=== PATIENT | female | born 1995 | race Caucasian/White ===

== ENCOUNTER 2017-03-21 03:20 | Inpatient (IN) | payer OTHER ==
[~2017-03-21] VITALS: Ht 157.5 cm; Wt 76.2 kg
[2017-03-21] MEDS ORDERED: FAMOTIDINE 20 MG INJ IV STA (04:20)
[2017-03-21] MEDS ORDERED: morphine 4 MG/ML VIAL IV STA (04:20)
[2017-03-21] MEDS ORDERED: ONDANSETRON 4 MG INJ IV STA (04:20)
[2017-03-21] MEDS ORDERED: SOD CHLORIDE 0.9% 500 ML IV STA (04:20)
--- NOTE | 2017-03-21 04:28 | ERD ---
ER Documentation Chief Complaint Chief Complaint epigastric pain since 5 hours ago vomiting HPI Patient is a 21-year-old female who presents with sudden onset, constant, moderate to severe epigastric and right upper quadrant pain since 12 AM. She reports 3 episodes of vomiting. She denies fever or diarrhea. She denies back pain. She reports that she has had similar pain in the past associated with eating spicy food since the age of 18. She has never sought medical attention for this pain. She reports that she ate a large meal around 9 PM. ROS All systems reviewed and are negative except as per history of present illness. Medications Home Meds No Active Prescriptions or Reported Meds Allergies Allergies: Coded Allergies: No Known Drug Allergies (Verified Allergy, Unknown, 03/23/14) PMhx/Soc Past medical history: None Past surgical history: Strabismus surgery Last menstrual: 3 weeks ago Social history: Denies tobacco or alcohol Medical and Surgical Hx: pt denies Medical Hx Hx Alcohol Use: No Hx Substance Use: No Hx Tobacco Use: No Smoking Status: Never smoker FmHx Family History: diabetes, No coronary disease Physical Exam Vitals Vital Signs Date Time Temp Pulse Resp B/P Pulse Ox O2 Delivery O2 Flow Rate FiO2 03/21/17 05:49 64 20 137/88 100 Room Air 03/21/17 03:27 98.6 68 20 125/76 99 Physical Exam Const: Alert, appears mildly uncomfortable Head: Atraumatic Eyes: Normal Conjunctiva, No pallor, no icterus ENT: Normal External Ears, Nose and Mouth. Mucous membranes moist Neck: Full range of motion. Resp: Clear to auscultation bilaterally, No wheezes, no rales Cardio: Regular rate and rhythm, no murmurs Abd: Soft, Nondistended, tender in the epigastrium and right upper quadrant with voluntary guarding, no rebound Skin: No petechiae or rashes Back: No midline or flank tenderness Ext: No cyanosis, or edema Neur: Awake and alert, Cranial nerves II through XII intact bilaterally, moves and feels 4 extremities Appropriately Psych: Normal Mood and Affect Result Diagram: 03/21/17 0440 03/21/17 0440 Results 24 hrs Laboratory Tests Test 03/21/17 04:39 03/21/17 04:40 Urine Color YELLOW Urine Clarity CLOUDY Urine pH 9.0 Urine Specific [place] 1.020 Urine Ketones NEGATIVEmg/dL Urine Nitrite NEGATIVEmg/dL Urine Bilirubin NEGATIVEmg/dL Urine Urobilinogen NEGATIVEmg/dL Urine Leukocyte Esterase NEGATIVELeu/ul Urine Microscopic RBC 0/HPF Urine Microscopic WBC 0/HPF Urine Amorphous Crystals FEW/HPF Urine Mucus MANY/HPF Urine Yeast (Budding) MODERATE/HPF Urine Hemoglobin NEGATIVEmg/dL Urine Glucose NEGATIVEmg/dL Urine Total Protein NEGATIVEmg/dl White Blood Count 13.610^3/ul Red Blood Count 4.5910^6/ul Hemoglobin 11.3g/dl Hematocrit 35.9% Mean Corpuscular Volume 78.2fl Mean Corpuscular Hemoglobin 24.6pg Mean Corpuscular Hemoglobin Concent 31.5g/dl Red Cell Distribution Width 16.6% Platelet Count 17108^3/UL Mean Platelet Volume 12.8fl Neutrophils % 79.0% Lymphocytes % 13.9% Monocytes % 5.1% Eosinophils % 1.0% Basophils % 0.7% Nucleated Red Blood Cells % 0.0/100WBC Neutrophils # 10.810^3/ul Lymphocytes # 1.910^3/ul Monocytes # 0.710^3/ul Eosinophils # 0.110^3/ul Basophils # 0.110^3/ul Nucleated Red Blood Cells # 0.010^3/ul Sodium Level 143mmol/L Potassium Level 4.0mmol/L Chloride Level 107mmol/L Carbon Dioxide Level 23mmol/L Anion Gap 17 Blood Urea Nitrogen 12mg/dl Creatinine 0.73mg/dl Glucose Level 122mg/dl Calcium Level 9.2mg/dl Total Bilirubin 0.3mg/dl Direct Bilirubin 0.00mg/dl Indirect Bilirubin 0.3mg/dl Aspartate Amino Transf (AST/SGOT) 15IU/L Alanine Aminotransferase (ALT/SGPT) 25IU/L Alkaline Phosphatase 82IU/L Total Protein 7.7g/dl Albumin 4.2g/dl Globulin 3.50g/dl Albumin/Globulin Ratio 1.20 Lipase 120U/L Serum HCG, Qualitative NEGATIVE Current Medications Medications (Trade) Dose Ordered Sig/Chan Route PRN Reason Start Time Stop Time Status Last Admin Dose Admin Sodium Chloride (NS) 500 ml @ 500 mls/hr Q1H STAT IV 03/21/17 04:20 03/21/17 05:19 DC 03/21/17 04:50 Morphine Sulfate (morphine) 4 mg ONCE STAT IV 03/21/17 04:20 03/21/17 04:22 DC 03/21/17 04:50 Ondansetron HCl (Zofran Inj) 4 mg ONCE STAT IV 03/21/17 04:20 03/21/17 04:22 DC 03/21/17 04:50 Famotidine (Pepcid Iv) 20 mg ONCE STAT IV 03/21/17 04:20 03/21/17 04:22 DC 03/21/17 04:50 Morphine Sulfate (morphine) 4 mg ONCE ONCE IV 03/21/17 05:23 03/21/17 05:24 DC 03/21/17 05:25 Ondansetron HCl (Zofran Inj) 4 mg ONCE ONCE IV 03/21/17 05:24 03/21/17 05:25 DC 03/21/17 05:25 Ondansetron HCl (Zofran Inj) 4 mg BRIDGE ORDER PRN IV NAUSEA AND/OR VOMITING 03/21/17 07:00 03/22/17 06:59 Acetaminophen (Tylenol Tab) 650 mg ER BRIDGE PRN PO MILD PAIN/FEVER 03/21/17 07:00 03/22/17 06:59 Procedures/MDM Patient is a 21-year-old female who presents with several hours of epigastric and right upper quadrant pain associated with vomiting. Ultrasound shows multiple gallbladder stones with hydrops and slightly thickened gallbladder wall. The patient received 2 doses of morphine and Zofran but continued to have vomiting and significant pain. I suspect that she has early cholecystitis. I discussed the case with Dr. Moreno, the surgeon on-call, and he agrees to see the patient. The patient will be admitted to Dr. Kelley. Departure Diagnosis: Primary Impression: Cholecystitis Condition: Stable THALIA LINDER MD Mar 21, 2017 04:28
[2017-03-21 04:50] LABS: BASOPHIL # 0.1 10^3/ul (0.0-0.1); BASOPHILS % 0.7 % (0.0-2.0); EOSINOPHILS # 0.1 10^3/ul (0.0-0.5); HEMATOCRIT 35.9 % (37.0-47.0); HEMOGLOBIN 11.3 g/dl (12.0-16.0); LYMPHOCYTES # 1.9 10^3/ul (0.8-2.9); LYMPHOCYTES % 13.9 % (18.0-55.0); MEAN CORPUSCULAR HEMOGLOBIN 24.6 pg (29.0-33.0); MEAN CORPUSCULAR HGB CONC 31.5 g/dl (32.0-37.0); MEAN CORPUSCULAR VOLUME 78.2 fl (72.0-104.0); MEAN PLATELET VOLUME 12.8 fl (7.4-10.4); MONOCYTE # 0.7 10^3/ul (0.3-0.9); MONOCYTES % 5.1 % (0.0-13.0); NEUTROPHIL # 10.8 10^3/ul (1.6-7.5); PLATELET COUNT 301 10^3/UL (140-415); RED BLOOD COUNT 4.59 10^6/ul (4.20-5.40); RED CELL DISTRIBUTION WIDTH 16.6 % (11.5-14.5); WHITE BLOOD COUNT 13.6 10^3/ul (4.8-10.8)
[2017-03-21 04:54] LABS: ADD UMIC YES; UR AMORPHOUS CRYSTAL FEW /HPF (NONE SEEN); UR ASCORBIC ACID NEGATIVE (NEGATIVE); UR BILIRUBIN (Dip) NEGATIVE (NEGATIVE); UR BLOOD (Dip) NEGATIVE (NEGATIVE); UR BUDDING YEAST MODERATE /HPF (NONE SEEN); UR CLARITY CLOUDY (CLEAR); UR COLOR YELLOW (YELLOW); UR GLUCOSE (Dip) NEGATIVE (NEGATIVE); UR KETONES (Dip) NEGATIVE (NEGATIVE); UR LEUKOCYTE ESTERASE (Dip) NEGATIVE Leu/ul (NEGATIVE); UR MUCUS MANY /HPF (NONE SEEN); UR NITRITE (Dip) NEGATIVE (NEGATIVE); UR RBC 0 /HPF (0-5); UR TOTAL PROTEIN (Dip) NEGATIVE (NEGATIVE); UR UROBILINOGEN (Dip) NEGATIVE (NEGATIVE)
--- NOTE | 2017-03-21 05:02 | RADRPT ---
PROCEDURE: US abdomen limited right upper quadrant. CLINICAL INDICATION: Abdominal pain TECHNIQUE: Multiple real-time images were acquired of the patient's right upper quadrant of the ab domen utilizing a high resolution transducer. COMPARISON: None FINDINGS: There is cholelithiasis with multiple gallstones in the gallbladder. The gallbladder is distended wi th maximal longitudinal dimension approximately 10.7 cm and maximal transverse diameter approximatel y 5.3 cm. There is appearance of minimal gallbladder wall thickening / edema with thickness approximately 3.1 mm. The common bile duct measures 4.4 mm in maximal dimension. No free fluid is identified. No abnormality is seen in the pancreas or liver. The right kidney ana ures 11.8 cm in length and is unremarkable. IMPRESSION: Cholelithiasis with multiple gallstones in the gallbladder. Minimal gallbladder wall thickening / ed tisha. The gallbladder is distended with maximal longitudinal dimension approximately 10.7 cm and maxi mal transverse diameter approximately 5.3 cm consistent with gallbladder hydrops. RPTAT: HJES .Den Acevedo MD, MD Date Time Electronically viewed and signed by .Den Acevedo MD, on 03/21/2017 05:01 .S/
[2017-03-21 05:08] LABS: ALBUMIN 4.2 g/dl (3.3-4.9); ALBUMIN/GLOBULIN RATIO 1.2; BILIRUBIN,INDIRECT 0.3 mg/dl (0-1.1); BILIRUBIN,TOTAL 0.3 mg/dl (0.2-1.3); CALCIUM 9.2 mg/dl (8.4-10.2); CREATININE 0.73 mg/dl (0.44-1.00); TOTAL PROTEIN 7.7 g/dl (6.1-8.1)
[2017-03-21] MEDS ORDERED: morphine 4 MG/ML VIAL IV ONE (05:23)
[2017-03-21] MEDS ORDERED: ONDANSETRON 4 MG INJ IV ONE (05:24)
[2017-03-21] MEDS ORDERED: ACETAMINOPHEN 325 MG TAB PO PRN (07:00)
[2017-03-21] MEDS ORDERED: ONDANSETRON 4 MG INJ IV PRN (07:00)
[2017-03-21] MEDS ORDERED: CEFTRIAXONE 1 GM/50 ML (PMX) 50 ML IVPB ONE (07:30)
[2017-03-21 10:30] VITALS: BP 138/87; PULSE 60; RESP 16
[2017-03-21 10:46] VITALS: Ht 157.5 cm; Wt 76.2 kg
[2017-03-21] MEDS: DEXTROSE 5%-0.45% NACL 1,000 ML IV SCH (11:00)
[2017-03-21] MEDS ORDERED: morphine 2 MG INJ IV PRN (11:00)
[2017-03-21] MEDS: FAMOTIDINE 20 MG INJ IV SCH ×2 (11:23→21:37)
--- NOTE | 2017-03-21 11:38 | CONS ---
Date/Time of Note Date/Time of Note DATE: 03/21/17 TIME: 11:34 Assessment/Plan Assessment/Plan Additional Assessment/Plan Acute cholecystitis Plan: Laparoscopic cholecystectomy is recommended. I have discussed the procedure, outcomes, expectations alternatives and risks in detail with the patient and mother who have an excellent understanding of the nature of her situation and agreed to the proposed plan of therapy as outlined. Consultation Date/Type/Reason Admit Date/Time Mar 21, 2017 at 06:48 Date of Consultation: Mar 21, 2017 Reason for Consultation Acute cholecystitis Hx of Present Illness The patient is a overweight 21-year-old female who presents with a 1 day history of severe midepigastric and right upper quadrant abdominal pain. In the emergency room she was noted to have a tender right upper quadrant, an elevated white blood cell count, and imaging studies compatible with acute cholecystitis. The patient is admitted and surgical consultation is requested in that regard. Constitutional: no complaints Eyes: no complaints ENT: no complaints Respiratory: no complaints Cardiovascular: no complaints Gastrointestinal: no complaints, pain (Right upper quadrant) Genitourinary: no complaints Musculoskeletal: no complaints Skin: no complaints Neurologic: no complaints Endocrine: no complaints Lymphatic: no complaints Psychological: no complaints Immunologic: no complaints Past Medical History Medical History: no pertinent history Past Surgical History Past Surgical Hx: no surgical history Family History Significant Family History: other (Familial history of gallbladder disease in the mother) Social History Alcohol Use: none Smoking Status: Never smoker Exam/Review of Systems Vital Signs Vitals Vital Signs Date Time Temp Pulse Resp B/P Pulse Ox O2 Delivery O2 Flow Rate FiO2 03/21/17 10:30 97.9 60 16 138/87 99 03/21/17 08:46 Room Air Exam Constitutional: alert Psych: no complaints Head: normocephalic Eyes: nl conjunctiva ENMT: nl external ears & nose Neck: supple Respiratory: clear to auscultation Cardiovascular: regular rate and rhythm Gastrointestinal: tender (Tender right upper quadrant with a positive sign) Musculoskeletal: nl extremities to inspection Extremities: normal pulses Neurological: WOMEN'S STUDIES LECTURER II-XII intact Skin: nl turgor Lymph: nl lymph nodes Results Result Diagram: 03/21/17 0440 03/21/17 0440 Results 24 hrs Laboratory Tests Test 03/21/17 04:39 03/21/17 04:40 Urine Color YELLOW Urine Clarity CLOUDY A Urine pH 9.0 Urine Specific [place] 1.020 Urine Ketones NEGATIVE Urine Nitrite NEGATIVE Urine Bilirubin NEGATIVE Urine Urobilinogen NEGATIVE Urine Leukocyte Esterase NEGATIVE Urine Microscopic RBC 0 Urine Microscopic WBC 0 Urine Amorphous Crystals FEW A Urine Mucus MANY A Urine Yeast (Budding) MODERATE A Urine Hemoglobin NEGATIVE Urine Glucose NEGATIVE Urine Total Protein NEGATIVE White Blood Count 13.6 H Red Blood Count 4.59 Hemoglobin 11.3 L Hematocrit 35.9 L Mean Corpuscular Volume 78.2 Mean Corpuscular Hemoglobin 24.6 L Mean Corpuscular Hemoglobin Concent 31.5 L Red Cell Distribution Width 16.6 H Platelet Count 301 Mean Platelet Volume 12.8 H Neutrophils % 79.0 H Lymphocytes % 13.9 L Monocytes % 5.1 Eosinophils % 1.0 Basophils % 0.7 Nucleated Red Blood Cells % 0.0 Neutrophils # 10.8 H Lymphocytes # 1.9 Monocytes # 0.7 Eosinophils # 0.1 Basophils # 0.1 Nucleated Red Blood Cells # 0.0 Sodium Level 143 Potassium Level 4.0 Chloride Level 107 Carbon Dioxide Level 23 Anion Gap 17 H Blood Urea Nitrogen 12 Creatinine 0.73 Glucose Level 122 Calcium Level 9.2 Total Bilirubin 0.3 Direct Bilirubin 0.00 Indirect Bilirubin 0.3 Aspartate Amino Transf (AST/SGOT) 15 Alanine Aminotransferase (ALT/SGPT) 25 Alkaline Phosphatase 82 Total Protein 7.7 Albumin 4.2 Globulin 3.50 H Albumin/Globulin Ratio 1.20 Lipase 120 Serum HCG, Qualitative NEGATIVE Medications Medications Current Medications Dextrose/Sodium Chloride (D5-1/2ns) 1,000 ml @ 50 mls/hr Q20H IV ; Start 03/21 at 11:00 Ondansetron HCl (Zofran Inj) 4 mg Q6H PRN IV NAUSEA AND/OR VOMITING; Start at 11:00 Morphine Sulfate (morphine) 1 mg Q4H PRN IV PAIN LEVEL 7-10 Last administered on 03/21/17 11:23; Admin Dose 1 MG; Start 03/21/17 at 11:00 Famotidine (Pepcid Iv) 20 mg BID IV Last administered on 03/21/17 11:23; Admin Dose 20 MG; Start 03/21/17 at 11:00 RAINA JAEGER MD Mar 21, 2017 11:38
--- NOTE | 2017-03-21 12:02 | HP ---
Date/Time of Note Date/Time of Note DATE: 03/21/17 TIME: 11:59 Assessment/Plan VTE Prophylaxis VTE Prophylaxis Intervention: SCD's Lines/Catheters IV [facility]ter [facility] (from [facility]): Saline Lock Assessment/Plan Chief Complaint/Hosp Course 1. Acute cholecystitis 2. obesity 3. control implant Problems: Assessment/Plan 1. pain control 2. Surgery laparoscopic cholecystectomy istomorrow 3. IV fluids 4. NPO HPI/ROS Admit Date/Time Admit Date/Time Mar 21, 2017 at 06:48 Hx of Present Illness 21-year-old female presents with sudden onset, constant, moderate to severe epigastric and right upper quadrant pain since 12 AM in ER. She reports that she ate a large meal around 9 PM. She reports 3 episodes of vomiting last night. She denies fever or diarrhea. She denies back pain. She reports that she has had similar pain in the past associated with eating spicy food since the age of 18. She has never sought medical attention for this pain. ROS Eyes: no complaints ENT: no complaints Respiratory: no complaints Cardiovascular: no complaints Gastrointestinal: nausea Genitourinary: no complaints Musculoskeletal: no complaints Skin: no complaints Neurologic: no complaints Lymphatic: no complaints Psychological: no complaints Immunologic: no complaints PMH/Family/Social Past Medical History Mirena control implant left arm Medical History: no pertinent history, other (left eye lazy eye) Past Surgical History Past Surgical Hx: no surgical history, other (left eye surgery) Family History Significant Family History: other (cholecystectomy) Social History Alcohol Use: none Smoking Status: Never smoker Drug Use: none Exam/Review of Systems Vital Signs Vitals Vital Signs Date Time Temp Pulse Resp B/P Pulse Ox O2 Delivery O2 Flow Rate FiO2 03/21/17 10:30 97.9 60 16 138/87 99 03/21/17 08:46 Room Air Exam Constitutional: alert, oriented Eyes: other (right eye lazy eye) ENMT: nl external ears & nose Neck: supple Respiratory: clear to auscultation Cardiovascular: regular rate and rhythm Gastrointestinal: bowel sounds (pos), rebound or guarding, soft Extremities: other (MIrena left arm) Labs Result Diagram: 03/21/17 0440 03/21/17 0440 Medications Medications Current Medications Dextrose/Sodium Chloride (D5-1/2ns) 1,000 ml @ 50 mls/hr Q20H IV ; Start 03/21 at 11:00 Ondansetron HCl (Zofran Inj) 4 mg Q6H PRN IV NAUSEA AND/OR VOMITING; Start at 11:00 Morphine Sulfate (morphine) 1 mg Q4H PRN IV PAIN LEVEL 7-10 Last administered on 03/21/17 11:23; Admin Dose 1 MG; Start 03/21/17 at 11:00 Famotidine (Pepcid Iv) 20 mg BID IV Last administered on 03/21/17 11:23; Admin Dose 20 MG; Start 03/21/17 at 11:00 MONCHO SANTIZO Mar 21, 2017 12:02
[2017-03-21] MEDS ORDERED: ZOLPIDEM 5 MG TAB PO PRN (12:30)
[2017-03-21] MEDS: morphine 2 MG INJ IV PRN ×2 (14:29→19:19)
[2017-03-21 14:54] VITALS: BP 154/83; RESP 16
[2017-03-21] MEDS: metroNIDAZOLE 500 MG/NS (PMX) 100 ML IVPB SCH ×2 (17:04→21:37)
[2017-03-21] MEDS: CEFTRIAXONE 1 GM/50 ML (PMX) 50 ML IVPB SCH (18:21)
[2017-03-21 20:27] VITALS: BP 134/85; RESP 14
[2017-03-21] MEDS: ONDANSETRON 4 MG INJ IV PRN (22:14)
[2017-03-22] VITALS (21 sets, daily range): BP systolic 106–126; BP diastolic 54–81; PULSE 64–78; RESP 14–20
[2017-03-22] MEDS: metroNIDAZOLE 500 MG/NS (PMX) 100 ML IVPB SCH ×4 (06:00→22:09)
[2017-03-22 06:35] LABS: ABNORMAL IP MESSAGE 1; BASOPHIL # 0.1 10^3/ul (0.0-0.1); BASOPHILS % 0.7 % (0.0-2.0); EOSINOPHILS # 0.1 10^3/ul (0.0-0.5); EOSINOPHILS % 0.7 % (0.0-7.0); HEMATOCRIT 35.5 % (37.0-47.0); HEMOGLOBIN 11.4 g/dl (12.0-16.0); LYMPHOCYTES # 1.9 10^3/ul (0.8-2.9); LYMPHOCYTES % 15.3 % (18.0-55.0); MEAN CORPUSCULAR HEMOGLOBIN 24.9 pg (29.0-33.0); MEAN CORPUSCULAR HGB CONC 32.1 g/dl (32.0-37.0); MEAN CORPUSCULAR VOLUME 77.7 fl (72.0-104.0); MEAN PLATELET VOLUME 13.3 fl (7.4-10.4); MONOCYTES % 8.4 % (0.0-13.0); NEUTROPHILS % 74.7 % (30.0-74.0); PLATELET COUNT 291 10^3/UL (140-415); RED BLOOD COUNT 4.57 10^6/ul (4.20-5.40); WHITE BLOOD COUNT 12.1 10^3/ul (4.8-10.8)
[2017-03-22 06:42] LABS: POSITIVE DIFF @See below
[2017-03-22 06:58] LABS: ALBUMIN 3.5 g/dl (3.3-4.9); ALBUMIN/GLOBULIN RATIO 0.94; BILIRUBIN,INDIRECT 1.1 mg/dl (0-1.1); BILIRUBIN,TOTAL 1.1 mg/dl (0.2-1.3); CALCIUM 8.8 mg/dl (8.4-10.2); CREATININE 0.57 mg/dl (0.44-1.00); POTASSIUM 3.5 mmol/L (3.5-5.1); TOTAL PROTEIN 7.2 g/dl (6.1-8.1)
[2017-03-22] MEDS ORDERED: PROPOFOL 200 MG INJ ONE (07:00)
[2017-03-22] MEDS: DEXTROSE 5%-0.45% NACL 1,000 ML IV SCH (07:00)
[2017-03-22] MEDS ORDERED: BUPIVACAINE 0.5%/EPI (SDV) 30 ML INJ ONE (07:08)
[2017-03-22] MEDS ORDERED: ROCURONIUM 50 MG INJ ONE (07:25)
[2017-03-22] MEDS ORDERED: PROPOFOL 20 ML ONE (07:25)
[2017-03-22] MEDS ORDERED: MIDAZOLAM 1 MG/ML 2 ML INJ ONE (07:25)
[2017-03-22] MEDS ORDERED: SUCCINYLCHOLINE CHLORIDE 100 MG/5 ML SYG IV ONE (07:25)
[2017-03-22] MEDS ORDERED: LIDOCAINE 2% (SDV) 5 ML INJ ONE (07:25)
[2017-03-22] MEDS ORDERED: FENTAnyl 50 MCG/ML VIAL IV PRN ×3 (07:30)
[2017-03-22] MEDS ORDERED: PROCHLORPERAZINE 10 MG INJ IV PRN (07:30)
[2017-03-22] MEDS ORDERED: ONDANSETRON 4 MG INJ IV PRN ×2 (07:30→09:30)
[2017-03-22] MEDS ORDERED: DIPHENHYDRAMINE 50 MG INJ IV PRN (07:30)
[2017-03-22] MEDS ORDERED: HYDROmorphONE (0.2 MG/ML) 10ML SYG IV PRN ×3 (07:30)
[2017-03-22] MEDS ORDERED: MEPERIDINE 25 MG INJ IV PRN (07:30)
[2017-03-22] MEDS ORDERED: FENTAnyl 50 MCG/ML VIAL ONE (07:38)
[2017-03-22] MEDS ORDERED: DEXAMETHASONE 4 MG/ML 1 ML INJ ONE (08:01)
[2017-03-22] MEDS ORDERED: ONDANSETRON 4 MG INJ ONE (08:01)
[2017-03-22] MEDS ORDERED: PHENYLephrine (100 MCG/ML) 5ML SYG ONE (08:03)
[2017-03-22] MEDS ORDERED: HYDROmorphONE 2 MG/ML SYG ONE (08:30)
[2017-03-22] MEDS ORDERED: NEOSTIGMINE 3 MG/3 ML SYRINGE ONE ×2 (08:41→08:43)
[2017-03-22] MEDS ORDERED: GLYCOPYRROLATE 1 MG INJ ONE (08:41)
[2017-03-22] MEDS: FAMOTIDINE 20 MG INJ IV SCH ×2 (09:00→20:42)
--- NOTE | 2017-03-22 09:12 | OPR ---
Date/Time of Note Date/Time of Note DATE: 03/22/17 TIME: 09:06 Operative Report Procedure Date: Mar 22, 2017 Preoperative Diagnosis Acute cholecystitis Postoperative Diagnosis Acute cholecystitis Operation/Procedure Performed 1. Laparoscopic cholecystectomy 2. Placement of drain Surgeon Raina Jaeger MD Wharf Helper None Anesthesia Type: general Anesthesiologist: LUZ ELENA ORTIZ MD Estimated Blood Loss: 10 - 50 ml's Transfusion none Specimen Gallbladder Grafts/Implants none Tubes/Drains #19 Round [place] drain Complications none Pt Condition Post Procedure: stable Disposition: PACU Indications Acute cholecystitis Procedure Description After satisfactory general endotracheal anesthesia was achieved, the abdomen was prepped and draped in the usual fashion. The abdomen was insufflated with carbon dioxide through an umbilical Veress needle to 15 mmHg pressure. The Veress needle was removed and the umbilical incision extended to 5 mm through which a 5 mm trocar was placed. A 5 mm 0 lens was placed. Laparoscopy showed an acutely inflamed, thickened, markedly distended and edematous gallbladder. Under direct visualization an 11 mm epigastric trocar was placed as well as 2 5 mm right lateral abdominal trochars. The dome of the gallbladder was grasped and retracted superiorly. Wallace's pouch was grasped and retracted infero- laterally. The hepatoduodenal ligament was carefully dissected. The cystic artery was coursing anteriorly on the gallbladder this was divided over a clip. The cystic duct was then thoroughly dissected, and quadruply hemoclipped and divided high at the junction of the gallbladder and the cystic duct. The gallbladder was then dissected from below using electrocautery dissection and placed intact into an Endo Catch. Because of the massive enlargement of the gallbladder, the epigastric incision had to be extended to 5 cm to facilitate removal of this gallbladder. The gallbladder was removed and submitted. Hemostasis of the liver bed was excellent. Because of the moderate amount of infection and inflammation it was elected to place a #19 round Jose. The drain was placed draining the right subhepatic space and gallbladder fossa, exiting through the lateralmost puncture site where it was secured to the skin with 2-0 nylon. The fascia of the epigastrium was closed with interrupted #1 and 0 Vicryl sutures. The skin punctures were infiltrated with 30 cc of 0.5% Marcaine and closed with camille. Sponge and needle counts were reported as correct 2. RAINA JAEGER MD Mar 22, 2017 09:12
[2017-03-22] MEDS ORDERED: morphine 2 MG INJ IV PRN (09:30)
[2017-03-22] MEDS ORDERED: OXYCODONE/ACETAMINOPHEN (5/325) TAB PO PRN ×2 (09:30)
[2017-03-22] MEDS: ONDANSETRON 4 MG INJ IV PRN (10:16)
--- NOTE | 2017-03-22 12:00 | PN ---
MONCHO SANTIZO 03/22/17 1200: Date/Time of Note Date/Time of Note DATE: 03/22/17 TIME: 11:59 Assessment/Plan VTE Prophylaxis VTE Prophylaxis Intervention: ambulation Lines/Catheters IV Catheter Type (from Nrsg): Peripheral IV Urinary Cath still in place: No Assessment/Plan Chief Complaint/Hosp Course 1. S/p lap cholecystectomy, on Regular diet already 2. obesity 3. control implant Problems: Assessment/Plan 1. Stop IV fluids 2. pain control Subjective 24 Hr Interval Summary Constitutional: improved, no complaints Exam/Review of Systems Vital Signs Vitals Vital Signs Date Time Temp Pulse Resp B/P Pulse Ox O2 Delivery O2 Flow Rate FiO2 03/22/17 11:53 98.6 03/22/17 11:15 84 20 111/56 97 03/22/17 10:12 Nasal Cannula Intake and Output 03/21/17 03/21/17 03/22/17 15:00 23:00 07:00 Intake Total 880 ml 470 ml Output Total 900 ml Balance 880 ml -430 ml Exam Constitutional: alert, oriented Cardiovascular: regular rate and rhythm Gastrointestinal: soft, surgical scars Results Result Diagram: 03/22/17 0537 03/22/17 0537 Results 24 hrs Laboratory Tests Test 03/22/17 05:37 White Blood Count 12.1 H Red Blood Count 4.57 Hemoglobin 11.4 L Hematocrit 35.5 L Mean Corpuscular Volume 77.7 Mean Corpuscular Hemoglobin 24.9 L Mean Corpuscular Hemoglobin Concent 32.1 Red Cell Distribution Width 17.0 H Platelet Count 291 Mean Platelet Volume 13.3 H Neutrophils % 74.7 H Lymphocytes % 15.3 L Monocytes % 8.4 Eosinophils % 0.7 Basophils % 0.7 Nucleated Red Blood Cells % 0.0 Neutrophils # 9.0 H Lymphocytes # 1.9 Monocytes # 1.0 H Eosinophils # 0.1 Basophils # 0.1 Nucleated Red Blood Cells # 0.0 Sodium Level 142 Potassium Level 3.5 Chloride Level 104 Carbon Dioxide Level 28 Anion Gap 14 Blood Urea Nitrogen 5 L Creatinine 0.57 Glucose Level 106 Calcium Level 8.8 Total Bilirubin 1.1 Direct Bilirubin 0.00 Indirect Bilirubin 1.1 Aspartate Amino Transf (AST/SGOT) 40 Alanine Aminotransferase (ALT/SGPT) 73 H Alkaline Phosphatase 82 Total Protein 7.2 Albumin 3.5 Globulin 3.70 H Albumin/Globulin Ratio 0.94 Medications Medications Current Medications Dextrose/Sodium Chloride (D5-1/2ns) 1,000 ml @ 50 mls/hr Q20H IV Last administered on 03/21/17 11:00; Admin Dose 50 MLS/HR; Start 03/21/17 at 11:00 Ondansetron HCl (Zofran Inj) 4 mg Q6H PRN IV NAUSEA AND/OR VOMITING Last administered on 03/22/17 10:16; Admin Dose 4 MG; Start 03/21/17 at 11:00 Famotidine (Pepcid Iv) 20 mg BID IV Last administered on 03/21/17 21:37; Admin Dose 20 MG; Start 03/21/17 at 11:00 Morphine Sulfate (morphine) 2 mg Q4H PRN IV PAIN LEVEL 7-10 Last administered on 03/21/17 19:19; Admin Dose 2 MG; Start 03/21/17 at 15:00 Zolpidem Tartrate 5 mg 5 mg HS PRN PO INSOMNIA Last administered on 03/21/17 22:55; Admin Dose 5 MG; Start 03/21/17 at 12:30 Ceftriaxone Sodium 50 ml @ 100 mls/hr Q24H IVPB Last administered on 18:21; Admin Dose 100 MLS/HR; Start 03/21/17 at 16:00 Metronidazole (Flagyl 500 Mg (Pmx)) 100 ml @ 100 mls/hr Q8 IVPB Last administered on 03/22/17 07:15; Admin Dose 100 MLS/HR; Start 03/21/17 at 16: 00 Oxycodone/ Acetaminophen (Percocet (5/ 325)) 1 tab Q4H PRN PO MILD PAIN (1-3); Start 03/22/17 at 09:30 Oxycodone/ Acetaminophen (Percocet (5/ 325)) 2 tab Q4H PRN PO MODERATE PAIN (4- 6); Start 03/22/17 at 09:30 Ondansetron HCl (Zofran Inj) 4 mg Q6H PRN IV NAUSEA; Start 03/22/17 at 09:30 DENISHA VIZCARRA MD 03/22/17 1637: Assessment/Plan Assessment/Plan Assessment/Plan S/P Lap cholecystectomy today JULIO CESAR DRAIN+ Exam/Review of Systems Results Result Diagram: 03/22/17 0537 03/22/17 0537 MONCHO SANTIZO Mar 22, 2017 12:00 DENISHA VIZCARRA MD Mar 22, 2017 16:37
[2017-03-22] MEDS: CEFTRIAXONE 1 GM/50 ML (PMX) 50 ML IVPB SCH (16:28)
[2017-03-23 02:33] VITALS: BP 104/55; RESP 18
[2017-03-23 05:46] LABS: ABNORMAL IP MESSAGE 1; BASOPHIL # 0.1 10^3/ul (0.0-0.1); BASOPHILS % 0.6 % (0.0-2.0); EOSINOPHILS # 0.1 10^3/ul (0.0-0.5); EOSINOPHILS % 0.9 % (0.0-7.0); HEMATOCRIT 30.1 % (37.0-47.0); HEMOGLOBIN 9.7 g/dl (12.0-16.0); LYMPHOCYTES # 2.5 10^3/ul (0.8-2.9); LYMPHOCYTES % 22.1 % (18.0-55.0); MEAN CORPUSCULAR HEMOGLOBIN 25.3 pg (29.0-33.0); MEAN CORPUSCULAR HGB CONC 32.2 g/dl (32.0-37.0); MEAN CORPUSCULAR VOLUME 78.4 fl (72.0-104.0); MEAN PLATELET VOLUME 13.1 fl (7.4-10.4); MONOCYTE # 1.2 10^3/ul (0.3-0.9); MONOCYTES % 10.2 % (0.0-13.0); NEUTROPHIL # 7.6 10^3/ul (1.6-7.5); NEUTROPHILS % 65.9 % (30.0-74.0); PLATELET COUNT 253 10^3/UL (140-415); RED BLOOD COUNT 3.84 10^6/ul (4.20-5.40); WHITE BLOOD COUNT 11.5 10^3/ul (4.8-10.8)
[2017-03-23] MEDS: metroNIDAZOLE 500 MG/NS (PMX) 100 ML IVPB SCH (05:51)
[2017-03-23 05:52] LABS: POSITIVE DIFF @See below
[2017-03-23 06:26] LABS: ALBUMIN 3.1 g/dl (3.3-4.9); ALBUMIN/GLOBULIN RATIO 0.96; BILIRUBIN,INDIRECT 0.6 mg/dl (0-1.1); BILIRUBIN,TOTAL 0.6 mg/dl (0.2-1.3); CALCIUM 8.3 mg/dl (8.4-10.2); CREATININE 0.72 mg/dl (0.44-1.00); POTASSIUM 3.2 mmol/L (3.5-5.1); TOTAL PROTEIN 6.3 g/dl (6.1-8.1)
[2017-03-23 07:41] VITALS: BP 102/66; RESP 20
[2017-03-23] MEDS: FAMOTIDINE 20 MG INJ IV SCH (08:50)
--- NOTE | 2017-03-23 10:46 | PN ---
Date/Time of Note Date/Time of Note DATE: 03/23/17 TIME: 10:45 Assessment/Plan Lines/Catheters IV Catheter Type (from [facility]): Saline Lock Jason in Place (from [facility]): No Assessment/Plan Chief Complaint/Hosp Course The patient is a overweight 21-year-old female who presents with a 1 day history of severe midepigastric and right upper quadrant abdominal pain. In the emergency room she was noted to have a tender right upper quadrant, an elevated white blood cell count, and imaging studies compatible with acute cholecystitis. The patient is admitted and surgical consultation is requested in that regard. Problems: Assessment/Plan Abdominal examination is benign I removed the JULIO CESAR drain at the bedside Patient is cleared for discharge home today with office follow-up in 1 week for staple removal I have left the patient a prescription for [place] and Keflex Subjective 24 Hr Interval Summary Postoperative day #1 Markedly symptomatically improved LFTs are normal Exam/Review of Systems Vital Signs Vitals Vital Signs Date Time Temp Pulse Resp B/P Pulse Ox O2 Delivery O2 Flow Rate FiO2 03/23/17 07:41 98.2 70 20 102/66 98 03/22/17 10:12 Nasal Cannula Intake and Output 03/22/17 03/22/17 03/23/17 15:00 23:00 07:00 Intake Total 1500 ml 890 ml 800 ml Output Total 30 ml 45 ml 50 ml Balance 1470 ml 845 ml 750 ml Results Result Diagram: 03/23/17 0516 03/23/17 0516 RAINA JAEGER MD Mar 23, 2017 10:46
--- NOTE | 2017-03-23 11:51 | PDOCDIS ---
Discharge Instructions DIAGNOSIS Discharge Diagnosis s/p cholecystectomy CONDITION Patient Condition: Stable HOME CARE INSTRUCTIONS: Diet Instructions: Low Fat /CholesterolSpecial Diet: REGULAR DIET ACTIVITY: Activity Restrictions: Slowly Increase Activity SCHOOL/WORK RELEASE May return to School/Work with: With Restrictions (physical exercises 2 weeks) MONCHO SANTIZO Mar 23, 2017 11:51
[2017-03-23] MEDS ORDERED: IBUP800T25 PO (11:52)
--- NOTE | 2017-03-23 11:54 | DS ---
Date/Time of Note Date/Time of Note DATE: 03/23/17 TIME: 11:53 Discharge Summary Admission/Discharge Info Admit Date/Time Mar 21, 2017 at 06:48 Discharge Date/Time Discharge Diagnosis s/p cholecystectomy Patient Condition: Stable Consults Dr Moreno Procedures lap cholecystectomy Hospital Course 21-year-old female presents with sudden onset, constant, moderate to severe epigastric and right upper quadrant pain since 12 AM in ER. She reports that she ate a large meal around 9 PM. She reports 3 episodes of vomiting last night. She denies fever or diarrhea. She denies back pain. She reports that she has had similar pain in the past associated with eating spicy food since the age of 18. She has never sought medical attention for this pain. DS: 1. S/p lap cholecystectomy, on Regular diet already, has BM, cleared by dr Moreno 2. obesity 3. control implant During hospitalization GI and DVT prophylaxis were appropriate. Pt was NPO before surgert and received IV fluids for hydration. Her pain was controlled. Surgery as performed by dr Moreno, next day JULIO CESAR was removed and st was given prescription for a/b and pain meds. Hospital course was unremarkable. Home Meds Active Scripts Ibuprofen* (Ibuprofen*) 800 Mg Tablet, 800 MG PO Q8 for 30 Days, TAB Prov:MONCHO SANTIZO 03/23/17 Follow-up Plan [address] Moreno for staple removal Primary Care Provider Fernie Rossi MD Time spent on discharge: < 30 minutes Pending Labs Laboratory Tests Test 03/23/17 05:16 White Blood Count 11.510^3/ul (4.8-10.8) Red Blood Count 3.8410^6/ul (4.20-5.40) Hemoglobin 9.7g/dl (12.0-16.0) Hematocrit 30.1% (37.0-47.0) Mean Corpuscular Volume 78.4fl (72.0-104.0) Mean Corpuscular Hemoglobin 25.3pg (29.0-33.0) Mean Corpuscular Hemoglobin Concent 32.2g/dl (32.0-37.0) Red Cell Distribution Width 17.0% (11.5-14.5) Platelet Count 23579^3/UL (140-415) Mean Platelet Volume 13.1fl (7.4-10.4) Neutrophils % 65.9% (30.0-74.0) Lymphocytes % 22.1% (18.0-55.0) Monocytes % 10.2% (0.0-13.0) Eosinophils % 0.9% (0.0-7.0) Basophils % 0.6% (0.0-2.0) Nucleated Red Blood Cells % 0.0/100WBC (0.0-0.0) Neutrophils # 7.610^3/ul (1.6-7.5) Lymphocytes # 2.510^3/ul (0.8-2.9) Monocytes # 1.210^3/ul (0.3-0.9) Eosinophils # 0.110^3/ul (0.0-0.5) Basophils # 0.110^3/ul (0.0-0.1) Nucleated Red Blood Cells # 0.010^3/ul (0.0-0.0) Sodium Level 139mmol/L (135-144) Potassium Level 3.2mmol/L (3.5-5.1) Chloride Level 104mmol/L (97-110) Carbon Dioxide Level 26mmol/L (21-31) Anion Gap 12 (8-16) Blood Urea Nitrogen 9mg/dl (7-20) Creatinine 0.72mg/dl (0.44-1.00) Glucose Level 101mg/dl (70-220) Calcium Level 8.3mg/dl (8.4-10.2) Total Bilirubin 0.6mg/dl (0.2-1.3) Direct Bilirubin 0.00mg/dl (0.00-0.20) Indirect Bilirubin 0.6mg/dl (0-1.1) Aspartate Amino Transf (AST/SGOT) 51IU/L (15-46) Alanine Aminotransferase (ALT/SGPT) 91IU/L (13-69) Alkaline Phosphatase 77IU/L (42-121) Total Protein 6.3g/dl (6.1-8.1) Albumin 3.1g/dl (3.3-4.9) Globulin 3.20g/dl (1.3-3.2) Albumin/Globulin Ratio 0.96 MNOCHO SANTIZO Mar 23, 2017 11:54
[2017-03-23] MEDS ORDERED: POTASSIUM CHLORIDE 20 MEQ POWDER FOR ORAL SOLN PO ONE (12:00)
== END 2017-03-23 13:00 | disposition home or self-care (01) | DRG 419 ==
LOC: E/R 03:20 → MS2 06:48
PROVIDERS: ADMIT Internal Medicine Nephrology; ATTEND Internal Medicine Nephrology
PROC: 0FT44ZZ Resection of Gallbladder, Percutaneous Endoscopic Approach (ICD-10-PCS; principal; 2017-03-22 07:30)
DX: K80.00 Calculus of gallbladder with acute cholecystitis without obstruction (principal); E66.9 Obesity, unspecified; Z83.79 Family history of other diseases of the digestive system
CPT/HCPCS: 36415; 76705; 80053; 81001; 83690; 84703; 85025; 96374; 96375; 96376; J0696; J1100; J1170; J2250; J2270; J2370; J2405; J2710; J3010; J7040; J7042

== ENCOUNTER 2017-07-08 09:01 | Emergency (ER) | END 2017-07-08 13:13 | disposition home or self-care (01) ==